=== PATIENT | female | born 1945 | race Caucasian/White ===

== ENCOUNTER 2024-02-28 14:46 | Emergency (ER) | payer MEDICARE, SELFPAY ==
[2024-02-28 15:01] VITALS: BP 174/86
--- NOTE | 2024-02-28 15:36 | ED.GENMED ---
History of Present Illness
General
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
Source: patient
Exam Limitations: none
Time Seen by Provider: 02/28/24 15:30
History of Present Illness
History of Present Illness:
See MDM
Past History
Past History
ED Past Medical History: Arrthythmia
ED Past Surgical History: Gynecological
Social History
Tobacco: Non-smoker
Alcohol: None
Phy Exam
Physical Exam
Physical Exam:
See MDM
Course
Orders/Labs/Results
Orders:
Orders
02/28/24 15:53
Complete Blood Count/With Diff Urgent
Comprehensive Metabolic Panel Urgent
Urinalysis Reflex To Culture Urgent
Date Specimen was Collected: 02/28/24
Time Specimen was Collected: 15:39
Abnormal Lab Results
02/28/24
15:53
RBC 3.84 L 10^6/uL
(4.20-5.40)
Hgb 10.0 L g/dL
(12.0-16.0)
Hct 29.9 L %
(37.0-47.0)
MCV 77.9 L fL
(81.0-99.0)
MCH 26.0 L pg
(27.0-31.0)
RDW 14.7 H %
(11.5-14.5)
Plt Count 413 H 10^3/uL
(130-400)
Abs Immat Gran (auto) 0.1 H 10^3/uL
(0-0.05)
Immature Gran % 1.4 H %
(0-0.5)
Total Protein 6.1 L g/dl
(6.3-8.2)
02/28/24 15:53
02/28/24 15:53
Vital Signs
Initial and Last Documented VS:
Initial Vital Signs
Temp Pulse Resp BP Pulse Ox
97.9 F 95 20 174/86 98
02/28/24 15:01 02/28/24 15:01 02/28/24 15:01 02/28/24 15:01 02/28/24 15:01
Last Documented Vital Signs
Temp Pulse Resp BP Pulse Ox
98.5 F 90 17 154/91 97
02/28/24 16:09 02/28/24 17:36 02/28/24 17:36 02/28/24 17:35 02/28/24 17:36
MDM/Problems Addressed
Differential Diagnosis Includes:
HPI and MDM Narrative:
78-year-old female presenting for evaluation of urinary incontinence. Patient states she had an injection in her neck on Sunday for arthritis. Earlier today, she felt a sudden delong to urinate. She could not make it into the bathroom in time and
she urinated. Since that 1 episode, patient states she continues to get the sudden delong that she has to urinate. She sometimes can make it to the bathroom in time. She denies any rectal numbness or trouble defecating. She denies any leg weakness.
On exam, the injection site in her neck is clean and shows no evidence of infection. Upper extremities and lower extremities all neurovascularly intact. Patellar reflexes +2. Abdomen soft nontender. Given that she has the urge to urinate, doubt
spinal cord pathology. Could be an adverse reaction of the medicine. There is no bowel involvement. Her exam is neurovascularly intact
Physical exam
General: Well appearing and non-toxic
HEENT: protecting airway
Neck: supple
CV: No evidence of cyanosis
Resp: No accessory muscle use
Abd: Non-distended and nontender
Extremities: No deformities
Neuro: alert. All extremities neurovascularly intact. Patellar reflexes +2
Psych: Normal affect
Skin: Intact
Problems Addressed including Acute and Chronic Conditions affecting care:
1. Increased urinary frequency
Acuity: acute
Prognosis: stable
Details: Potentially side effect of the medicine or UTI. Since she has the urge to go, doubt spinal cord pathology
Updates
Patient was able to urinate without difficulty while here. She felt the urge to urinate and urinated without difficulty. There was no incontinence noted. Postvoid residual 100. She feels comfortable going home
Differential Diagnosis (but not limited to): UTI, adverse reaction to medicine
Testing considered: Neck CT
Drug therapy (if applicable): OTC meds, please see d/c instruction regarding Rx drugs
Amount and/or Complexity of Data Reviewed
Clinical info obtained from: Patient
External data reviewed: N/A
Labs I independently reviewed (but not limited to): Normal, urinalysis negative
Radiology: N/A
Pulse Ox: not hypoxic
EKG independently reviewed: N/A
Provider Relations Specialist: N/A
Critical Care: N/A
Risk of Complication:
Social Determinants of health: Good social support
Discussed with other providers: N/A
Escalation of Care includes Admit/Obs: After being observed in the Emergency Department, pt stable for discharge.
Occasional wrong word or 'sound a like' substitutions may have occurred due to the inherent limitations of voice recognition software. Read the chart carefully and recognize, using context, where substitutions have occurred.
*Critical Care Note
Total Time (30-74mins, 75-104mins- exclusive of procedures): Not Applicable
ED Attending Note
-
Portions of this chart may have been created with voice recognition software.� Occasional wrong word or��sound alike� substitutions may have occurred due to the inherent limitations of voice recognition software.
Discharge Plan
Departure
Patient Disposition: Home (Routine Discharge)
Date of Disposition: 02/28/24
Time of Disposition: 18:00
Patient with high blood pressure during this ER visit?: Yes
Discharge Problem:
Urinary urgency
Instructions: BLOOD PRESSURE
Referrals:
Kinza Elizabeth CRNP [Family Provider] -
Activity Restrictions/Additional Instructions:
It is not certain what is causing your symptoms. Please have your symptoms reevaluated by your primary care doctor and please discuss the case with the physician who injected your neck.
Please return for any worsening symptoms.
You may return at any time if you have further concerns.
Please follow up with your doctor at the first available appointment, preferably this week.
Thank you for choosing [facility].
Interventions
Interventions:
*Risk Screen - Suicide Last Done: 02/28/24 14:47
*General Assessment Last Done: 02/28/24 15:01
*Neglect/Abuse Screening Last Done: 02/28/24 15:01
ED- Fall Risk Assessment Last Done: 02/28/24 16:09
*ED COVID-19 Vaccine History Last Done: 02/28/24 16:09
ED-Female Genitourinary Assessment Last Done: 02/28/24 16:09
Discharge Date and Time
Print Language: CAMEROONIAN
[2024-02-28 16:06] LABS: % Basophils 0.1 % (0-2); % Immature Granulocytes 1.4 % (0-0.5); % Lymphocytes 21.1 % (20.5-51.1); % Monocytes 8.1 % (1.7-9.3); % Neutrophils 65.3 % (42.2-75.2); Absolute Eosinophils 0.3 10^3/uL (0-0.7); Absolute Immature Granulocytes 0.1 10^3/uL (0-0.05); Absolute Lymphocytes 1.6 10^3/uL (1.2-3.4); Absolute Monocytes 0.6 10^3/uL (0.1-0.6); Hematocrit 29.9 % (37.0-47.0); Mean Corp Hgb Conc. 33.4 g/dL (33.0-37.0); Mean Corpuscular Volume 77.9 fL (81.0-99.0); Mean Platelet Volume 9.2 fL (7.4-10.4); Nucleated Red Blood Cells % 0 %; Platelet Count 413 10^3/uL (130-400); Red Blood Cell Count 3.84 10^6/uL (4.20-5.40); Red Cell Dist. Width 14.7 % (11.5-14.5); White Blood Cell Count 7.7 10^3/uL (4.8-10.8)
[2024-02-28 16:09] VITALS: BP 135/96; BMI 25.0
[2024-02-28 16:15] VITALS: BP 124/74
[2024-02-28 16:23] LABS: ALT (SGPT) 20 U/L (0-35); AST (SGOT) 24 U/L (14-36); Albumin 3.7 g/dl (3.5-5.0); Alkaline Phosphatase 77 U/L (38-126); Blood Urea Nitrogen 15 mg/dl (7-17); Calcium 9.2 mg/dl (8.4-10.2); Carbon Dioxide 28 mmol/L (22-30); Chloride 102 mmol/L (98-107); Estimated Creatinine Clearance 74 ml/min; Glucose 92 mg/dl (70-99); Potassium 3.9 mmol/L (3.5-5.1); Sodium 140 mmol/L (135-145); Total Bilirubin 0.3 mg/dl (0.2-1.3); Total Protein 6.1 g/dl (6.3-8.2); eGFR > 60.00
[2024-02-28 16:34] LABS: Urine Albumin Negative (Neg - Trace); Urine Bilirubin Negative (Negative); Urine Character Clear (Clear); Urine Color Yellow; Urine Glucose Negative (Negative); Urine Ketone Negative (Negative); Urine Leukocyte Negative (Negative); Urine Nitrite Negative (Negative); Urine Occult Blood Negative (Negative); Urine Specific Gravity 1.005 (<1.030); Urine Urobilinogen Negative (Neg - 1+)
[2024-02-28 17:35] VITALS: BP 154/91
== END 2024-02-28 18:05 | disposition home or self-care (01) ==
LOC: EMR 14:46
PROVIDERS: EMERGENCY PHYSICIAN Student in an Organized Health Care Education/Training Program; FAMILY PHYSICIAN Registered Nurse
DX: R39.15 Urgency of urination (principal)
CPT/HCPCS: 99282; 80053; 81003; 85025